=== PATIENT | female | born 1970 | race Caucasian/White ===

== ENCOUNTER 2018-05-02 04:58 | Day surgery (SDC) | payer OTHER ==
[2018-04-29 08:44] VITALS: BMI 30.2
--- NOTE | 2018-05-02 06:18 | HP ---
[facility] - Chief Complaint Chief Complaint: this patient is here to have an endometrial polyp removed. History of Present Illness: This patient had a recent pelvic sonogram to check for fibroids of the uterus and was found to have an endometrial polyp. History Source: Patient Limitations to Obtaining History: No Limitations - Past Medical History Allergies/Adverse Reactions: Allergies Allergy/AdvReac Type Severity Reaction Status Date / Time Penicillins Allergy Severe Rash Verified 04/29/18 08:36 [employer]: No: Alzheimer's, CVA, Dementia, Migraine, Multiple Sclerosis, Peripheral Neuropathy, Parkinson's, Seizure, Syncope, TIA, Vertigo, Other Cardiovascular: No: AFIB, Aneurysm, Aortic Insufficiency, Aortic Stenosis, CAD, CHF, Deep Vein Thrombosis, HTN, Hyperlipdemia, GA, Mitral Insufficiency, Mitral Stenosis, Murmur, Pulmonary Hypertension, Other Pulmonary: No: Asthma, Bronchitis, Cancer, COPD, O2 Dependent, Pneumonia, Previously Intubated, Pulmonary Embolus, Pulmonary Fibrosis, Sleep Apnea, Other Gastrointestinal: No: Ascites, Cancer, Constipation, Crohn's Disease, Diverticulitis, Diverticulosis, Esophageal Varices, Gastritis, GERD, GI Bleed, Hemorrhoids, Hiatal Hernia, Inflamatory Bowel Disease, Irritable Bowel Disease, Pancreatitis, Peptic Ulcer Disease, Ulcerative Colitis, Other Hepatobiliary: No: Cirrhosis, Cholelithiasis, Cholecystitis, Choledocholithiasis , Hepatitis A, Hepatitis B, Hepatitis C, Other Renal/: No: Renal Failure, Renal Inusuff, BPH, Cancer, Hematuria, Hemodialysis , Neurogenic Bladder, Renal Calculi, UTI, Other Reproductive: Yes: Fibroids ...LMP: 04/02/18 ...: No ...: 2 ...Para: 2 Heme/Onc: No: Anemia, B12 Deficiency, Bleeding Disorder, Cancer, Current Chemotherapy, Current Radiation Therapy, Hemochromatosis, Hypercoaguable State, Myeloproliferative Synd, Sickle Cell Disease, Sickle Cell Trait, Thrombocytopenia, Other Infectious Disease: No: AIDS, C-Diff, Herpes Zoster, HIV, MRSA, STD's, Tuberculosis, VREF, Other Musculoskeletal: No: Bursitis, Chronic low back pain, Hemiparesis, Hemiplegia, Osteoarthritis, Paraplegia, Other Rheumatology: No: Fibromyalgia, Gout, Lupus, Rheumatoid Arthritis, Sarcoidosis, Vasculitis, Other ENT: No: Allergic Rhinitis, Sinusitis, Other Endocrine: No: Casselberry's Disease, Union's Disease, Diabetes Insipidus, Diabetes Mellitus, Hyperparathyroidism, Hyperthyroidism, Hypothyroidism, Osteopenia, SIADH, Other Dermatology: No: Basal Cell, Cellulitis, Eczema, Melanoma, Psoriasis, Squamous Cell, Other - Current Medications Current Medications: Home Medications Medication Instructions Recorded NK [No Known Home Medication] 04/29/18 Satellite Physical Exam - Physical Examination General Appearance: Well Nourished, Well Developed, Alert & Oriented x3 ENT: Clear, No Discharge, No masses Lung: Clear to auscultation Heart: Regular rate & rhythm, Normal S1, Normal S2 Breasts: Soft, Non-Tender, No masses bilaterally Abdomen: Soft, No tenderness, No CVA Extremities: No edema, No tenderness/swelling Pelvic Exam: Within normal limits External Genitalia, Within normal limits Vagina, Within normal limits Cervix, Within normal limits Uterus (fibroids are palpable), Within normal limits [facility]: Intact, Alert, Oriented Satellite Impression/Plan - Impression/Plan Impression: endometrial polyp and fibroids of the uterus Operative Procedure: D/C with hysteroscopy and polypectomy Date to be Performed: 05/02/18
[2018-05-02] MEDS ORDERED: PROPOFOL 20 ML ONE ×3 (07:23→08:17)
[2018-05-02] MEDS ORDERED: MIDAZOLAM HCL 2 MG/2 ML SINGLE DOSE VIAL ONE (07:24)
[2018-05-02] MEDS ORDERED: ONDANSETRON 4 MG/2 ML VIAL IVPUSH PRN (07:36)
[2018-05-02] MEDS ORDERED: PROMETHAZINE HCL 25 MG/1 ML VIAL IVPB PRN (07:36)
[2018-05-02] MEDS ORDERED: oxyCODONE HCL 5 MG TABLET PO PRN (07:36)
[2018-05-02] MEDS ORDERED: LACTATED RINGERS SOLUTION 1,000 ML IV SCH (07:45)
[2018-05-02] MEDS ORDERED: LIDOCAINE HCL/PF 2% SDV 5ML VIAL ONE (07:58)
[2018-05-02] MEDS ORDERED: KETOROLAC TROMETHAMINE 30 MG/1 ML VIAL ONE (08:08)
[2018-05-02] MEDS ORDERED: METOPROLOL TARTRATE 5 MG/5 ML VIAL ONE ×2 (08:39)
--- NOTE | 2018-05-02 09:23 | OP ---
DATE OF OPERATION: 05/02/2018 SURGEON: Ivonne Perez MD ANESTHESIOLOGIST: Darrin Gu MD DESCRIPTION OF PROCEDURE: The patient was brought to the operating room, placed in a supine position, given anesthesia by Dr. Gu. The patient was placed in the lithotomy position and prepped and draped in the usual manner for dilatation and curettage. The anterior lip of the cervix was grasped with a tenaculum. The uterus was sounded to 9 cm. The cervix was dilated with Harvey dilators. The Symphion hysteroscope was inserted. The Symphion polyp resector was inserted, and polypectomy was carried out. The patient did well. This was followed by a dilatation and curettage using a medium-sized curette. The curettings were sent to Pathology as well as the polyp tissue was sent to Pathology for analysis. The hemostasis was good. The estimated blood loss was approximately 10 mL. The vital signs were stable. After the speculum and the tenaculum were released from the cervix and from the vagina, the patient was transferred to the recovery room in stable condition. The patient did well and was transferred to the recovery room. The deficit was 400 mL. IVONNE PEREZ M.D. [id number]
[2018-05-02 12:17] VITALS: BP 136/83; PULSE 77; TEMP 99
--- NOTE | 2018-05-03 19:38 | PATH ---
Surgical Pathology Report Patient Name: MARYAM VALLE [facility]. Rec. #: [id number] /Age/Gender: 1970 (Age: 47) / F Account: [id number] Location: [facility] Taken: 05/02/2018 Received: 05/02/2018 Reported: 05/03/2018 Physicians: Mansoor Gilman M.D. Specimen(s) Received A: ENDOMETRIAL POLYP B: ENDOMETRIAL CURETTINGS Clinical History Endometrial polyp Final Diagnosis A. ENDOMETRIAL POLYP, POLYPECTOMY: FRAGMENTS OF ENDOMETRIAL POLYP. B. ENDOMETRIAL CURETTINGS, DILATION AND CURETTAGE: FRAGMENTS OF ENDOMETRIAL POLYP, PROLIFERATIVE ENDOMETRIUM, AND BENIGN CERVICAL TISSUE. Electronically Signed Laurel Ivy M.D. Gross Description A. Received in formalin labeled "endometrial polyp," is a 2.5 x 2.0 x 0.3 cm aggregate of howard soft tissue fragments. The specimen is entirely submitted in one cassette. B. Received in formalin labeled "endometrial curetting," is a 3.5 x 2.7 x 0.3 cm aggregate of howard-brown soft tissue fragments admixed with blood clot. The formalin is filtered and the specimen is entirely submitted in one cassette. 05/02/201805/02/2018
== END 2018-05-02 12:15 | disposition home or self-care (01) ==
LOC: JASU-SURG 04:58
PROVIDERS: ATTEND Obstetrics & Gynecology
PROC: 0UB98ZX Excision of Uterus, Via Natural or Artificial Opening Endoscopic, Diagnostic (ICD-10-PCS; principal; 2018-05-02 07:30)
PROC: 0UDB7ZX Extraction of Endometrium, Via Natural or Artificial Opening, Diagnostic (ICD-10-PCS; 2018-05-02 07:30)
DX: N84.0 Polyp of corpus uteri (principal)
CPT/HCPCS: 36415; 84703; 86850; 86900; 86901; 88305-TC; 94760